=== PATIENT | male | born 1990 | race Caucasian/White ===

== ENCOUNTER 2018-04-04 22:53 | Observation (INO) | payer OTHER ==
[~2018-04-04] VITALS: Ht 170.2 cm; Wt 110.6 kg
[~2018-04-04 22:53] MED LIST: ADDERALL30 MG PO; ADDERALL5 MG PO; DEXTROAMP-AMPHE30 MG PO; NAPROSYN500 MG PO; SUBOXONE 8 MG-1 EAC2 SL
[2018-04-05 01:50] LABS: HEMATOCRIT 43.6 % (38.0-50.0); HEMOGLOBIN 15.6 G/DL (12.5-16.6); MCH 31.7 PG (29.0-34.0); MCHC 35.8 G/DL (30.0-36.0); MCV 88.6 FL (86-99); PLATELET COUNT 236 K/uL (156-360); RBC DIS.WIDTH-CV 13.3 % (11.8-14.6); RBC DIS.WIDTH-SD 43.7 % (39-53); RED BLOOD COUNT 4.92 M/uL (4.00-5.50); WHITE BLOOD COUNT 6.1 K/uL (4.1-10.2)
[2018-04-05 02:15] LABS: ALBUMIN 4.7 g/dL (3.2-4.8); CHLORIDE 104 mEq/L (99-109); POTASSIUM 3.7 mEq/L (3.7-5.4); SODIUM 140 mEq/L (136-147)
[2018-04-05 02:18] LABS: GLUCOSE 110 mg/dL (70-99); TOTAL PROTEIN 7.7 g/dL (6.4-8.3)
[2018-04-05 02:20] LABS: TOTAL BILIRUBIN 0.7 mg/dL (0.0-1.0)
[2018-04-05 02:21] LABS: ALKALINE PHOSPHATASE 67 IU/L (3-129); SERUM ETHYL ALCOHOL 123 mg/dL
[2018-04-05 02:22] LABS: CREATININE 0.8 mg/dL (0.6-1.3); GFR ESTIMATE (CALCULATED) > 59 mL/min/ (58.99-99999)
[2018-04-05 02:23] LABS: AST (GOT) 184 IU/L (2-34); UREA NITROGEN (BUN) 12 mg/dL (9-23)
[2018-04-05 02:24] LABS: ALT (GPT) 343 IU/L (3-49)
[2018-04-05 02:25] LABS: CREATINE KINASE 780 IU/L (1-294); LIPASE 12 U/L (1.0-51.0)
[2018-04-05 03:08] LABS: APPEARANCE CLEAR ((CLEAR)); BILIRUBIN NEGATIVE; BLOOD NEGATIVE; COLOR YELLOW ((YELLOW)); GLUCOSE (STRIP) NEGATIVE; KETONES NEGATIVE; LEUKOCYTES SMALL; NITRITE NEGATIVE; PROTEIN (STRIP) NEGATIVE; SPECIFIC GRAVITY 1.019 (1.000-1.030); UROBILINOGEN 0.2 MG/DL (0.2-1.0)
[2018-04-05 03:28] LABS: BACTERIA NONE SEEN /HPF; EPITHELIAL CELLS NONE SEEN /HPF; MUCUS NONE SEEN /LPF; RED BLOOD CELLS 0-5 /HPF (0-5); UCUL ADDED? YES
[2018-04-05 05:00] LABS: MAGNESIUM 2.5 mg/dL (1.3-2.7)
[2018-04-05 05:28] VITALS: BP 110/68
[2018-04-05] MEDS ORDERED: ADDERALL30 MG PO (05:38)
[2018-04-05] MEDS ORDERED: ADDERALL XR 2020 MG PO (05:39)
[2018-04-05 07:44] VITALS: BP 134/78
[2018-04-05] MEDS ORDERED: NATURAL BALANCE15 M1 BOTH EYES (10:21)
[2018-04-05] MEDS ORDERED: ADVIL,NUPRIN,M200 MG PO (10:21)
[2018-04-05] MEDS ORDERED: EYE ITCH RELIEF5 ML BOTH EYES (10:22)
[2018-04-05 11:21] VITALS: BP 115/67
[2018-04-05 15:18] VITALS: BP 130/82
[2018-04-05 19:49] VITALS: BP 112/75
[2018-04-06 00:10] VITALS: BP 129/77
[2018-04-06 06:18] LABS: ALBUMIN 3.8 G/DL (3.2-4.8); ALKALINE PHOSPHATASE 55 IU/L (3-129); ALT (GPT) 202 IU/L (3-49); AST (GOT) 107 IU/L (2-34); CHLORIDE 105 MEQ/L (99-109); CREATININE 0.7 MG/DL (0.6-1.3); GFR ESTIMATE (CALCULATED) > 59 mL/min/ (58.99-99999); GLUCOSE 133 mg/dL (70-99); POTASSIUM 3.5 MEQ/L (3.7-5.4); SODIUM 139 MEQ/L (136-147); TOTAL BILIRUBIN 1.1 MG/DL (0.0-1.0); TOTAL PROTEIN 6.8 G/DL (6.4-8.3); UREA NITROGEN (BUN) 11 mg/dL (9-23)
[2018-04-06 07:28] VITALS: BP 117/78
[2018-04-06] MEDS ORDERED: DISULFIRAM250 MG PO (11:13)
[2018-04-06] MEDS ORDERED: NICOTINE PATCH1 EAC1 TD (11:13)
[2018-04-06 11:42] VITALS: BP 120/67
== END 2018-04-06 14:13 | disposition home or self-care (01) ==
LOC: EME 22:53 → 4SOUTH 04-05 04:26 → EDOF 04-05 04:26 → ENRESERV 04-05 04:29 → 4SOUTH 04-05 05:12
PROVIDERS: Emergency Medicine; Hospitalist
DX: F10.239 Alcohol dependence with withdrawal, unspecified (principal); E66.01 Morbid (severe) obesity due to excess calories; Z68.38 Body mass index [BMI] 38.0-38.9, adult; F41.9 Anxiety disorder, unspecified; F12.90 Cannabis use, unspecified, uncomplicated; F19.10 Other psychoactive substance abuse, uncomplicated; Y90.6 Blood alcohol level of 120-199 mg/100 ml; F17.200 Nicotine dependence, unspecified, uncomplicated; R79.89 Other specified abnormal findings of blood chemistry; K76.0 Fatty (change of) liver, not elsewhere classified; M62.82 Rhabdomyolysis; F32.9 Major depressive disorder, single episode, unspecified
CPT/HCPCS: 80053; 81003; 82550; 82948; 83605; 83690; 83735; 85027; 87086; 93005; 99281; 99285; G0378; G0480; J1650; J2060; J3411; J7030; J7120